=== PATIENT | female | born 1990 | race Caucasian/White ===

== ENCOUNTER 2020-09-06 15:06 | Emergency (ER) | payer BC, OTHER ==
--- OUTSIDE RECORDS SUMMARY | 2020-09-06 15:12 | XMS REPORT | Continuity of Care Document ---
:1990 Author Organization [facility] t Address [address] [place] [address] Care Team Providers Name Role Phone Unavailable Unavailable Unavailable Problems This patient has no known problems. Allergies, Adverse Reactions, Alerts This patient has no known allergies or adverse reactions. Medications This patient has no known medications. Procedures This patient has no known procedures. Encounters Start End Encounter Admission Attending Care Care Encounter Source Date/Time Date/Time Type Type Clinicians Facility Department ID 2018-12-10 2018-12-10 Outpatient [facility] CARMEN Vazquez 08:11:00 08:11:00 kelley benson [facility] Results This patient has no known results.
[2020-09-06 18:50] LABS: Absolute Lymphocytes (CBC) 2.3 K/uL (0.7-4.9); Basophils % 0.7 % (0-1.3); Hematocrit 44.9 % (36.0-45.0); Lymphocytes % 25.4 % (15.3-44.8); MPV 7.8 fL (7.6-11.3); RBC Red Blood Cell Count 4.77 M/uL (3.86-4.86)
[2020-09-06 19:01] LABS: Potassium 3.4 mmol/L (3.5-5.1)
[2020-09-06] MEDS ORDERED: ONDANSETRON 4 MG/2 ML VIAL ONE (19:33)
[2020-09-06] MEDS ORDERED: FENTANYL CITR 100 MCG/2 ML ONE (19:33)
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
[2020-09-06] MEDS ORDERED: MORPHINE 4 MG/ML SYR ONE (20:09)
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
[2020-09-06 21:08] VITALS: TEMP 98.3
[2020-09-06 21:10] VITALS: BP 102/62; O2SAT 99
== END 2020-09-06 21:03 | disposition home or self-care (01) ==
LOC: ER 15:06
DX: G44.319 Acute post-traumatic headache, not intractable (principal); V49.50XA Passenger injured in collision with unspecified motor vehicles in traffic accident, initial encounter; Z72.0 Tobacco use; Z98.84 Bariatric surgery status
CPT/HCPCS: 85025; 80048; 36415; 82565; 70450; 72125; 71260; 74177; 96375; 96374; 99284; Q9967; J3010; J2405